=== PATIENT | female | born 1960 | race Caucasian/White ===

== ENCOUNTER → 2019-04-21 13:26 | Outpatient (REF) | payer OTHER, SELFPAY | LOC: ANHLAB 13:26 | PROVIDERS: Visit Provider Nurse Practitioner | DX: L82.1 Other seborrheic keratosis (principal) | CPT/HCPCS: 88305 ==

== ENCOUNTER → 2019-05-27 11:23 | Outpatient (REF) | payer OTHER, SELFPAY | LOC: ANHLAB 11:23 | PROVIDERS: Visit Provider Nurse Practitioner | DX: C43.71 Malignant melanoma of right lower limb, including hip (principal); D22.5 Melanocytic nevi of trunk | CPT/HCPCS: 88305; 88342 ==

== ENCOUNTER → 2019-06-10 14:11 | Outpatient (REF) | payer OTHER, SELFPAY | LOC: ANHLAB 14:11 | PROVIDERS: Visit Provider Nurse Practitioner | DX: D03.71 Melanoma in situ of right lower limb, including hip (principal) | CPT/HCPCS: 88305 ==

== ENCOUNTER → 2020-11-15 14:43 | Outpatient (REF) | payer OTHER, SELFPAY | LOC: ANHLAB 14:43 | PROVIDERS: PCP Family Medicine; Visit Provider Nurse Practitioner | DX: D22.4 Melanocytic nevi of scalp and neck (principal) | CPT/HCPCS: 88305 ==